=== PATIENT | female | born 1940 | race Two or more races ===

== ENCOUNTER → 2019-07-29 | Outpatient (CLI) | payer OTHER | END | disposition home or self-care (01) | LOC: TOM 09:55 | DX: R91.1 Solitary pulmonary nodule (principal) ==

== ENCOUNTER 2022-11-12 16:08 | Emergency (ER) | payer OTHER ==
[~2022-11-12] VITALS: Ht 167.6 cm; Wt 81.6 kg
== END 2022-11-12 22:22 | disposition home or self-care (01) ==
LOC: ER 16:08
DX: R63.0 Anorexia (principal); R42 Dizziness and giddiness